=== PATIENT | female | born 1960 | race Caucasian/White ===

== ENCOUNTER 2018-09-08 09:35 | Emergency (ER) | payer OTHER, SELFPAY ==
[2018-09-08 09:37] VITALS: BP 144/87; PULSE 71; RESP 18; TEMP 36.6; O2SAT 98; BMI 21.4
--- NOTE | 2018-09-08 10:12 | ED.DCSUM_ITS ---
- ER Visit Summary Date of Service: 09/08/18 Chief Complaint: Right shoulder pain History of Present Illness: The patient is a [address] Isaac. She reports that yesterday at work she was picking up a box of carrots and then turned to the throat up on the table in the box of the table and stopped her movement abruptly. She had abrupt onset of right shoulder pain. She is right- hand dominant. Patient describes pain as an aching pain is 8 out of 10 with movement of her shoulder and 1 out of 10 at rest. States that the movement that wakes at worst is abduction and flexion of her shoulder. She is neurovascularly intact. She denies any numbness or weakness. She has not had problems with the shoulder previously. Physical Examination: Vitals: Stable. Afebrile. General: Well-nourished and well-developed. Head: Normocephalic atraumatic. Neck: Supple, no lymphadenopathy. No JVD. Nontender. Cardiovascular: Regular rate and rhythm. No murmurs. Respiratory: No respiratory distress. Clear to auscultation bilaterally. Abdominal: Soft, nontender, nondistended, normal bowel sounds. No guarding, rebound, or peritoneal signs. Back: Nontender. Extremities: Minimal tenderness palpation over the right upper scapula. She has no pain over the deltoid. No pain in the bicipital groove. She has minimal pain with passive flexion or abduction of her shoulder. Moderate pain with active flexion greater than abduction. She is neurovascular intact distally with. Normal sensation light touch. 2+ radial pulse. Less than 2-second capillary refill. Skin: Normal color, no rash. Neurologic: Alert and oriented ?3. Cranial nerves II through XII are intact. Normal strength and sensation. Psych: Normal affect. Test Results: Right shoulder x-ray shows no acute disease. Emergency Department Course and Treatment: Patient was treated with ibuprofen. She is resting comfortably. Treatment Plan: Patient will be discharged with work restrictions is a limited use of the right arm. No reaching above the shoulder level. No lifting more than 20 pounds. Instructed to follow-up with corporate care within 1 week for another exam. She does understand that if this is not improving she may require an MRI to rule out a rotator cuff injury. Disposition: To home in improved and stable condition. Impression: 1. Right shoulder strain. This note was generated with Dragon dictation software. It may contain incorrect words, spelling, and punctuation that were not noted in review of the chart prior to signing ED Disposition - Plan for ED Patient: Instructions: ED Shoulder Pain [facility] Referrals: Corporate,Care [GROUP OF PHYSICIANS] - 1 Week
--- NOTE | 2018-09-08 10:22 | RAD_ITS ---
STUDY: X-RAY - RIGHT SHOULDER REASON FOR EXAM: Female, 58 years old. Pain following injury. TECHNIQUE: 4 view(s) of the shoulder. COMPARISON: None. FINDINGS: There is moderate degenerative arthrosis of the glenohumeral articulation. Normal acromioclavicular joint. Normal acromion. Normal humeral head and visualized proximal humerus. The soft tissue structures are unremarkable. Normal visualized pulmonary apex. RAD/Shoulder min 2 Views IMPRESSION: Degenerative changes of the glenohumeral joint. Electronically Signed: Tim Catherine, at 11:44 EDT , Service support ,
[2018-09-08] MEDS: Ibuprofen 400 MG Tablet PO (11:06)
[2018-09-08 11:33] VITALS: PULSE 80; RESP 14; O2SAT 99
== END 2018-09-08 11:25 | disposition home or self-care (01) ==
PROVIDERS: Emergency Provider Emergency Medicine; Family Provider Family Medicine; PCP Family Medicine
DX: S46.911A Strain of unspecified muscle, fascia and tendon at shoulder and upper arm level, right arm, initial encounter (principal); X50.0XXA Overexertion from strenuous movement or load, initial encounter; Y93.89 Activity, other specified; Y92.9 Unspecified place or not applicable; Y99.0 Civilian activity done for income or pay; E03.9 Hypothyroidism, unspecified; Z72.0 Tobacco use
CPT/HCPCS: 73030; 99283

== ENCOUNTER → 2018-09-23 07:04 | Outpatient (CLI) | payer OTHER, SELFPAY ==
[2018-09-15 11:46] VITALS: BMI 21.4
--- NOTE | 2018-09-23 07:14 | MRI_ITS ---
STUDY: MRI RIGHT SHOULDER REASON FOR EXAM: Female, 58 years old. Pain. Strain. Limited range of motion. TECHNIQUE: Standardized fat and water weighted pulse sequences were obtained in all 3 orthogonal planes. COMPARISON: X-ray September 08, 2018 FINDINGS: There is high-grade bursal and intrasubstance tear of the distal supraspinatus tendon, series 7 image . Normal infraspinatus tendon. Normal subscapularis tendon. Normal teres minor tendon. Normal supraspinatus muscle. Normal infraspinatus muscle. Normal subscapularis muscle. Normal teres minor muscle. There is a small volume joint effusion of the glenohumeral joint. There is a cortical erosion at the insertion of the infraspinatus tendon. The long head of the biceps tendon is not seen within the bicipital groove. Normal labrum. Normal capsulo- ligamentous complex. Normal rotator interval. There is mild osteoarthritis of the acromioclavicular articulation. There is a Type II morphology (curved) acromion, with a neutral orientation. There is minimal fluid distention of the subacromial bursa, consistent with mild subacromial-subdeltoid bursitis. Normal visualized coracohumeral and coracoacromial ligaments. Normal quadrilateral space. Normal axillary space. Normal deltoid muscle. Normal trapezius muscle. MRI/Upper Ext Joint Only(Routine) IMPRESSION: High-grade rotator cuff tear of the supraspinatus tendon. Subluxation and/or tear of the long head of the biceps. Electronically Signed: Ata Clark MD at 20:53 EDT , Service support ,
== END ==
PROVIDERS: Family Provider Family Medicine; PCP Family Medicine; Referring Provider Physician Assistant Surgical; Visit Provider Physician Assistant Surgical
DX: S46.911A Strain of unspecified muscle, fascia and tendon at shoulder and upper arm level, right arm, initial encounter (principal)
CPT/HCPCS: 73221

== ENCOUNTER → 2018-11-18 14:54 | Outpatient (CLI) | payer OTHER, SELFPAY ==
[2018-10-07 08:47] VITALS: BMI 21.4
[2018-11-18 16:22] LABS: Thyroid Stim Hormone (TSH) 4.01 uIU/mL (0.358-3.74)
== END ==
PROVIDERS: Family Provider Family Medicine; PCP Family Medicine; Visit Provider Family Medicine
DX: E03.9 Hypothyroidism, unspecified (principal)
CPT/HCPCS: 36415; 84443

== ENCOUNTER → 2020-04-20 | Outpatient (CLI) | payer OTHER, SELFPAY ==
[2018-10-07 08:47] VITALS: BMI 21.4
== END | disposition home or self-care (01) ==
LOC: LABSPEC 17:48
PROVIDERS: PCP Family Medicine; Referring Provider Family Medicine; Visit Provider Family Medicine
DX: Z20.828 Contact with and (suspected) exposure to other viral communicable diseases (principal)
CPT/HCPCS: 87635; C9803; U0003

== ENCOUNTER → 2020-09-02 11:05 | Outpatient (CLI) | payer OTHER, SELFPAY ==
[2018-10-07 08:47] VITALS: BMI 21.4
[2020-09-02 11:12] VITALS: BP 126/67; PULSE 68; RESP 16; TEMP 36.3; O2SAT 99; BMI 20.5
[2020-09-02] MEDS: 0.9% NaCl Peripheral Flush Adult/Peds IV (11:28)
[2020-09-02] MEDS: 0.9% NaCl IVPB Med Flush (250 mL) 15 ML IV (11:34)
[2020-09-02] MEDS: Zoledronic Acid 5 MG 100 ML 300 MG IV (11:35)
[2020-09-02 12:24] VITALS: BP 138/71; PULSE 59; RESP 16; O2SAT 100
== END ==
PROVIDERS: PCP Family Medicine; Referring Provider Family Medicine; Visit Provider Family Medicine
DX: M80.00XA Age-related osteoporosis with current pathological fracture, unspecified site, initial encounter for fracture (principal)
CPT/HCPCS: 96365; J7050; A4216; J3489

== ENCOUNTER 2021-09-07 13:18 | Outpatient (CLI) | payer OTHER, SELFPAY ==
[2021-09-07 13:34] VITALS: BP 121/71; PULSE 64; RESP 16; TEMP 36.7; O2SAT 97; BMI 22.1
[2021-09-07] MEDS: Zoledronic Acid 5 MG 100 ML 300 MG IV (13:46)
[2021-09-07] MEDS: 0.9% NaCl Peripheral Flush Adult/Peds IV ×2 (13:52→14:12)
[2021-09-07 14:16] VITALS: BP 126/73; PULSE 60; RESP 12; TEMP 36.6; O2SAT 100
== END 2021-09-07 23:59 | disposition home or self-care (01) ==
LOC: MEDOUTP 13:19
PROVIDERS: PCP Family Medicine; Referring Provider Family Medicine; Visit Provider Family Medicine
DX: M80.00XA Age-related osteoporosis with current pathological fracture, unspecified site, initial encounter for fracture (principal)
CPT/HCPCS: 96365; A4216; J3489

== ENCOUNTER → 2022-08-30 | Outpatient (CLI) | payer OTHER, SELFPAY ==
[2022-09-10 15:58] LABS: HPV Reflexed? NOT INDICATED
== END | disposition home or self-care (01) ==
LOC: LABSPEC 15:16
PROVIDERS: PCP Family Medicine; Referring Provider Family Medicine; Visit Provider Family Medicine
DX: Z12.4 Encounter for screening for malignant neoplasm of cervix (principal)
CPT/HCPCS: 88175; G0145

== ENCOUNTER → 2022-09-13 | Outpatient (CLI) | payer OTHER, SELFPAY ==
--- NOTE | 2022-09-13 10:39 | BD_ITS ---
STUDY: DUAL ENERGY X-RAY ABSORPTIOMETRY / DXA REASON FOR EXAM: Female, 62 years old. 733.00OsteoporosisBONE DENSITY REASON FOR EXAM TECHNIQUE: Bone Mineral Density (BMD) measurements of lumbar spine and left hip were obtained. COMPARISON: None. FINDINGS: Lumbar Spine (L1-L4): g/cm2 (0.677) / T-score (-3.4) / Z-score (-1.7) Findings are suggestive of osteoporosis with a high fracture risk. Left Femur Total: g/cm2 (0.624) / T-score (-2.6) / Z-score (-1.4) Left Femoral Neck: g/cm2 (0.537) / T-score (-2.8) / Z-score (-1.3) BD/Dexa Bone Density Study IMPRESSION: The patient is considered osteoporotic as outlined below according to World Loki Organization (WHO) criteria with a high fracture risk. Reference Information: The T-score is the number of standard deviations above or below the standard which is normal for young adults at their peak bone mineral density. The World Health Organization (WHO) interprets the T-scores as follows: Above -1 Normal bone density Between -1 and -2.5 Osteopenia Equal to / or below -2.5 Osteoporosis As a practical clinical guideline, osteopenia may be graded as follows: Mild -1 through -1.5 Moderate -1.6 through -2.0 Severe -2.1 through -2.4 The Z-score is the number of standard deviations above or below age-matched controls. A Z-score of less than -1.5 would be considered abnormal. References: 1. NIH Osteoporosis and Related Bone Diseases www osteo.org 2. International Society for Clinical Densitometry www iscd.org 3. National Osteoporosis Foundation www nof.org Electronically Signed: Tim Catherine MD at 15:32 EDT ,
== END | disposition home or self-care (01) ==
PROVIDERS: PCP Family Medicine; Referring Provider Family Medicine; Visit Provider Family Medicine
DX: M81.0 Age-related osteoporosis without current pathological fracture (principal)
CPT/HCPCS: 77080

== ENCOUNTER 2022-10-11 08:21 | Outpatient (CLI) | payer OTHER, SELFPAY ==
[2022-10-11 08:36] VITALS: BP 131/64; PULSE 65; RESP 16; TEMP 35.6; O2SAT 97; BMI 21.2
[2022-10-11] MEDS: Zoledronic Acid 5 MG 100 ML 300 MG IV (08:38)
[2022-10-11 08:54] VITALS: BP 117/65; PULSE 53; RESP 16; TEMP 35.6
== END 2022-10-11 08:22 | disposition home or self-care (01) ==
LOC: MEDOUTP 08:21
PROVIDERS: PCP Family Medicine; Referring Provider Family Medicine; Visit Provider Family Medicine
DX: M80.00XA Age-related osteoporosis with current pathological fracture, unspecified site, initial encounter for fracture (principal)
CPT/HCPCS: 96365; A4216; J3489

== ENCOUNTER → 2023-03-12 | Outpatient (CLI) | payer OTHER, SELFPAY ==
--- NOTE | 2023-03-12 10:26 | RAD_ITS ---
STUDY: X-RAY CHEST REASON FOR EXAM: Female, 63 years old. Shortness of breath, productive cough and chest pain. TECHNIQUE: Frontal and lateral views of the chest. COMPARISON: February 2016. FINDINGS: Stable mild hyperinflation. There is no demonstrated pleural abnormality. Borderline cardiomegaly unchanged. Normal mediastinum and chester. Normal visualized pulmonary arteries. Aortic tortuosity with calcification unchanged. Normal visualized thoracic spine. Normal visualized ribs, clavicles, and shoulders. No abnormality of the visualized soft tissue structures of the upper abdomen. RAD/Chest PA and Lateral IMPRESSION: Stable chest with no acute or active cardiopulmonary disease. Electronically Signed: Aiden Saunders MD at 15:22 EDT ,
[2023-03-12 12:17] LABS: Absolute Lymphocyte Count 2.11 X10^3/uL (0.83-4.51); Absolute Neutrophil Count 5.4 X10^3/uL (2.0-7.7); Basophil# 0.04 X10^3/uL; Basophil% 0.5 % (0-1); Eosinophil# 0.13 X10^3/uL; Eosinophils% 1.5 % (0-5); Hematocrit 36.8 % (37-47); Hemoglobin 12.1 g/dL (12.0-15.0); Lymphocyte # 2.11 X10^3/ul (0.83-4.51); Lymphocyte % 25.1 % (19-41); Mean Corp Hgb Conc 32.9 g/dL (32-36); Mean Corpuscular Hgb 30.3 pg (27.0-32.0); Mean Platelet Vol. 9.7 fl (6.2-12.0); Monocyte# 0.69 X10^3/uL; Monocyte% 8.2 % (0-10); NRBC Flagged by Analyzer 0 % (0-5); Neutrophil # 5.39 X10^3/uL (2.7-7.7); Neutrophil % 64.3 % (47-70); Platelet Count 417 K/mm3 (150-450); RBC Distribution Width CV 14.9 % (11.6-14.6); RBC Distribution Width SD 50.3 fl (35.1-43.9); White Blood Count 8.4 K/mm3 (4.4-11.0)
[2023-03-12 13:12] LABS: ALB/GLOB Ratio 0.9 RATIO (0.9-2.4); AST(SGOT) 16 U/L (15-37); Alanine Aminotransfer ALT/SGPT 21 U/L (13-56); Albumin, Serum 3.5 g/dL (3.2-5.0); Alkaline Phosphatase 73 U/L (45-117); Anion Gap 5 (5-15); BUN 10 mg/dL (7-18); BUN/Creat Ratio 16.5 RATIO (10-20); Calcium,Total 8.7 mg/dL (8.5-10.1); Chloride 110 mmol/L (98-107); Creatinine, Serum 0.61 mg/dL (0.55-1.02); EST Glomerular Filtration Rate 105 mL/min (>60); Est Glom Filt Rate - Afr Amer 128 mL/min (>60); Glucose 99 mg/dL (74-106); Potassium 4.1 mmol/L (3.5-5.1); Protein, Total 7.5 g/dL (6.4-8.2); Sodium Level 141 mmol/L (136-145); T4 Free Direct 1.12 ng/dL (0.76-1.46)
== END | disposition home or self-care (01) ==
LOC: RAD 10:24
PROVIDERS: PCP Family Medicine; Referring Provider Nurse Practitioner Family; Visit Provider Nurse Practitioner Family
DX: R06.02 Shortness of breath (principal); R07.9 Chest pain, unspecified; R05.8 Other specified cough; E03.9 Hypothyroidism, unspecified
CPT/HCPCS: 36415; 71046; 80053; 84439; 84443; 85025

== ENCOUNTER → 2023-06-06 | Outpatient (CLI) | payer OTHER, SELFPAY ==
--- OUTSIDE RECORDS SUMMARY | 2023-06-06 17:29 | XMS RPT_ITS | CCD ---
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 Name Role Phone Unavailable Primary Care Provider Unavailhusam e Jerilyn Watkins DO Primary Care Provider JERILYN WATKINS Referring Unavailable JERILYN WATKINS Primary Care Unavailable JERILYN WATKINS Primary Care Unavailable Allergies Allergy Classification Reported Allergen(s) Allergy Type Date of Onset Reaction(s) Facility (3 sources) Banana Extract; Translations: [BANANA] Drug Allergy 05-16-2020 Diarrhea, GI Upset [facility] [place], [place] Medications Completed/Discontinued Medications Medication Drug Class(es) Dates Sig (Normalized) Sig (Original) amLODIPine 5 mg oral tablet (1 source) Dihydropyridine Calcium Channel Dutch take 1 tablet by mouth once daily amLODIPine (NORVASC) 5 mg tablet Take 5 mg by mouth once daily. 0 Active Problems Problem Classification Problem Date Documented Da te Episodic/Chronic Thyroid disorders (1 source) Hypothyroidism, unspecified; Translations: [Unspecified hypothyroidism] Onset: 08-22-2022 Chronic Results Test Name Value Interpretation Reference Range Facil ity Encounters Encounter Date Encounter Type Care Provider Facility Start: 08-22-2022 End: 08-23-2022 ambulatory JERILYN WATKINS Facility:[facility] Start: 08-22-2022 Encounter for jerome davis adult medical examination without abnormal findings JERILYN WATKINS [facility] Start: 11-29-2021 End: 11-29-2021 ambulatory JERILYN Farhana JUNE Facility:[facility] Start: 11-29-2021 End: 11-29-2021 Subsequent hospital visit by physician [facility] Radha Mob Work Phone: Radiology Start: 06-16-2020 End: 06-16-2020 Subsequent hospital visit by physician Ankush Bill Work Phone: [facility] MRI Procedures Date Procedure Procedure Detail Performing Clinician Start: 11-29-2021 Radiologic exam ches t 2 views [facility] Provider Start: 06-16-2020 Mri any jt lower ext rem w/contrast material Ankush José Acus Work Phone: Start: 06-16-2020 Arthrocentesis aspir &/inj major jt/bursa w/o us Ankush José Acus Work Phone: Plan of Treatment Date Care Activity Detail Author Start: 04-24-2024 LIPID SCREEN LIPID SCREEN [facility] Start: 04-24-2022 DIABETES SCREEN DIABETES SCREEN [facility] Start: 10-02-2021 COVID-19 VACCINE (3 - Booster for Moderna series) COVID-19 VACCINE (3 - Booster for Moderna series) [facility] Start: 02-02-2020 Influenza vaccination Flu vaccine (#1) [place], [place] Start: 02-26-2008 Screening for malignant neoplasm of breast Breast cancer screen [place], [place] Start: 02-26-2008 Screening for malignant neoplasm of colon Colon cancer screen colonoscopy [place], [place] Start: 02-26-2008 Shingles Vaccine (1 of 2) Shingles Vaccine (1 of 2) [place] Start: 02-26-2008 SHINGRIX VACCINE (1 of 2) SHINGRIX VACCINE (1 of 2) [facility] Start: 2003 COLOGUARD (FIT-DNA) COLOGUARD (FIT-DNA) [facility] Start: 2003 Colonoscopy COLONOSCOPY [facility] Start: 2003 COLORECTAL CANCER SCREENING COLORECTAL CANCER SCREENING [facility] Start: [address] COLONOGRAPHY [facility] Start: 2003 FECAL OCCULT BLOOD FECAL OCCULT BLOOD [facility] Start: 2003 SIGMOIDOSCOPY SIGMOIDOSCOPY [facility] Start: 1998 Lipid panel Lipid screen [place], [place] Start: 1998 Mammography MAMMOGRAM [facility] Start: 02-26-1988 HPV TESTING HPV TESTING [facility] Start: 1979 PAP TESTING PAP TESTING [facility] Start: 1979 Screening for malignant neoplasm of cervix Cervical cancer screen [place], [place] Start: 1977 DTaP/Tdap/Td vaccine (1 - Tdap) DTaP/Tdap/Td vaccine (1 - Tdap) [place], [place] Start: 1977 Urine microalbumin profile DTAP,TDAP,TD (1 - Tdap) [facility] Start: 02-26-1976 HEPATITIS C SCREENING HEPATITIS C SCREENING [facility] Start: 02-26-1976 HIV SCREENING HIV SCREENING [facility] Start: 1973 HIV screening HIV screen [place], [place] Start: 1970 Adult depression screening assessment DEPRESSION SCREENING [facility] Start: 1958 Hepatitis C screening Hepatitis C screen [place], [place] Payers Date Payer Category Payer Private Health Insurance ANGIEMÓNICA Christie SMITH OAP [id number] 2020-Present [phone] [address] [place] [address] Open Access [id number] 2020 Private Health Insurance [id number] 2018 Unknown [employer] [id number] 2018-Present Indemnity [id number] Social History Date Type Detail Facility Tobacco smoking stat [facility] Unknown if ever smoked [place], [place] Start: 1960 Sex Assigned At Not on file [place] Start: 07-28-2016 [facility] Start: 07-28-2016 Tobacco use and exposure Smokeless tobacco non-user [facility] Progress note 11-29-2021 Note Date & Type Note Facility 11-29-2021 Note HNO ID: [id number] Author: RT Phil(R) Service: ? Author Type: Technologist Type: Progress Notes Filed: 11/29/2021 3:45 PM Note Text: Radiology Service Progress Note PATIENT NAME: Mago Dickerson DATE OF SERVICE: November 29, 2021 TIME: 3:45 PM PATIENT IDENTITY VERIFICATION COMPLETED USING TWO (2) IDENTIFIERS: Name and Date of confirmed by patient verbally. FALL SCREENING: Has the patient had 2 falls in the last year or 1 fall with injury or currently using an Ambulatory Assistive Device (Walker, Cane, Wheelchair, Crutches, etc.)? No PATIENT GENDER DATA: Female. status: : No status: NO. PATIENT RELEVANT IMPLANT DATA REVIEWED: Not Applicable RADIOLOGY DEPARTMENT: General X-ray: Exam(s) Completed: Chest X-Ray PERIPHERAL IV DATA: Not applicable SIGNED BY: RT Phil(R) November 29, 2021 3:45 PM [facility] History of Present illness Narrative 11-29-2021 RT Phil(R) - 11/29/2021 3:30 PM EDT Note Date & Type Note Facility 11-29-2021 History of Presen t illness Narrative Radiology Service Progress Note PATIENT NAME: Mago Dickerson DATE OF SERVICE: November 29, 2021 TIME: 3:45 PM PATIENT IDENTITY VERIFICATION COMPLETED USING TWO (2) IDENTIFIERS: Name and Date of confirmed by patient verbally. FALL SCREENING: Has the patient had 2 falls in the last year or 1 fall with injury or currently using an Ambulatory Assistive Device (Walker, Cane, Wheelchair, Crutches, etc.)? No PATIENT GENDER DATA: Female. status: : No status: NO. 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 Summary Purpose Family History No Family History Records FoundNo Family History Records Found Additional Source Comments INFORMATION SOURCE (unrecogn ized section and content) DATE CREATED AUTHOR AUTHOR'S IRMA FISHER 08/23/2022 [facility] Source Comments (unrecognize d section and content) In the event this informatio n is protected by the Federal Confidentiality of Alcohol and Drug Abuse Patient Records regulations: The Federal rules restrict any use of the information to criminally investigate or prosecute any alcohol or drug abuse patient.[facility] Care Teams (unrecognized sec tion and content) FOR RECORDS PERTAINING TO PATIENTS WHO ARE OR HAVE BEEN ENROLLED IN A CHEMICAL DEPENDENCY/SUBSTANCEABUSE PROGRAM, SOME INFORMATION MAY BE OMITTED. This clinical summary was aggregated from multiple sources. Caution should be exercised in using it in the provision of clinical care. This summary normalizes information from multiple sources, and as a consequence, information in this document may materially change the coding, format and clinical context of patient data. In addition, data may be omitted in some cases. CLINICAL DECISIONS SHOULD BE BASED ON THE PRIMARY CLINICAL RECORDS. [employer] [facility]. provides no warranty or guarantee of the accuracy or completeness of information in this document.
[2023-06-06 18:37] LABS: T4 Free Direct 1.24 ng/dL (0.76-1.46); Thyroid Stim Hormone (TSH) 1.35 uIU/mL (0.358-3.74)
== END | disposition home or self-care (01) ==
LOC: BFHLAB 15:05
PROVIDERS: PCP Nurse Practitioner Family; Visit Provider Nurse Practitioner Family
DX: E03.9 Hypothyroidism, unspecified (principal)
CPT/HCPCS: 36415; 84439; 84443

== ENCOUNTER 2023-10-17 10:10 | Outpatient (CLI) | payer OTHER, SELFPAY ==
[2023-10-17 10:26] VITALS: BP 140/77; PULSE 58; RESP 16; TEMP 35.7; O2SAT 99; BMI 22.1
[2023-10-17] MEDS: 0.9% NaCl Peripheral Flush Adult/Peds IV (10:35)
[2023-10-17] MEDS: Zoledronic Acid 5 MG 100 ML 300 MG IV (10:35)
[2023-10-17 11:02] VITALS: BP 125/63; PULSE 58; RESP 16; TEMP 35.7; O2SAT 99
== END 2023-10-17 23:59 | disposition home or self-care (01) ==
LOC: MEDOUTP 10:11
PROVIDERS: PCP Nurse Practitioner Family; Referring Provider Family Medicine; Visit Provider Family Medicine
DX: M80.00XA Age-related osteoporosis with current pathological fracture, unspecified site, initial encounter for fracture (principal); X58.XXXA Exposure to other specified factors, initial encounter
CPT/HCPCS: 96365; A4216; J3489

== ENCOUNTER 2024-10-22 13:14 | Outpatient (CLI) | payer OTHER, SELFPAY ==
[2024-10-22] MEDS: Zoledronic Acid 5 MG 100 ML 300 MG IV (13:29)
[2024-10-22 13:33] VITALS: BP 122/60; PULSE 54; RESP 16; TEMP 36.6; O2SAT 97; BMI 23.0
[2024-10-22 14:04] VITALS: BP 123/56; PULSE 64
== END 2024-10-22 23:59 | disposition home or self-care (01) ==
LOC: MEDOUTP 13:17
PROVIDERS: PCP Nurse Practitioner Family; Referring Provider Family Medicine; Visit Provider Family Medicine
DX: M80.00XA Age-related osteoporosis with current pathological fracture, unspecified site, initial encounter for fracture (principal)
CPT/HCPCS: 96365; A4216; J3489

== ENCOUNTER → 2025-03-02 | Outpatient (CLI) | payer OTHER, SELFPAY ==
[2025-03-02 10:26] LABS: Hematocrit 35.3 % (37-47); Hemoglobin 12.3 g/dL (12.0-15.0); Immature Granulocytes Count 0.020 X10^3/uL (0.0-0.0); Mean Corp Hgb Conc 34.8 g/dL (32-36); Mean Corpuscular Volume 87.4 fL (81-99); Mean Platelet Vol. 9.2 fl (6.2-12.0); NRBC Flagged by Analyzer 0 % (0-5); Platelet Count 326 K/mm3 (150-450); RBC Distribution Width CV 13.6 % (11.6-14.6); RBC Distribution Width SD 43.6 fl (35.1-43.9); Red Blood Count 4.04 M/mm3 (4.2-5.4); White Blood Count 6.5 K/mm3 (4.4-11.0)
[2025-03-02 11:19] LABS: AST(SGOT) 22 U/L (<=31); Alanine Aminotransfer ALT/SGPT 16 U/L (<=34); Albumin, Serum 4.2 g/dL (3.4-4.8); Alkaline Phosphatase 81 U/L (35-104); Anion Gap 11 (5-15); BUN 19 mg/dL (4-19); BUN/Creat Ratio 30.0 RATIO (10-20); Calcium,Total 9.2 mg/dL (7.6-11.0); Carbon Dioxide 24.3 mmol/L (21.0-32.0); Chloride 106 mmol/L (98-108); Cholesterol 224 mg/dL (<=200); Free T3 2.3 pg/mL (2.18-3.98); Globulin 3.0 g/dL (2.2-4.2); Glucose 100 mg/dL (70-99); Low Density Lipoprotein Calc. 138 mg/dL; Potassium 3.9 mmol/L (3.3-5.1); Triglycerides 102 mg/dL; Very Low Density Lipoprotein 20 mg/dL (5-40); Vitamin D,25 Hydroxy 35.1 ng/mL (30-100); cholesterol:hdl ratio screen 3.42
== END | disposition home or self-care (01) ==
LOC: MTLAB 09:08
PROVIDERS: PCP Nurse Practitioner Family; Referring Provider Family Medicine; Visit Provider Family Medicine
DX: E03.9 Hypothyroidism, unspecified (principal); E78.5 Hyperlipidemia, unspecified; E55.9 Vitamin D deficiency, unspecified; Z51.81 Encounter for therapeutic drug level monitoring
CPT/HCPCS: 36415; 80053; 80061; 82306; 84439; 84443; 84481; 85025